=== PATIENT | male | born 1975 | race Hispanic/Latino ===

== ENCOUNTER 2023-12-08 19:17 | Emergency (ER) | payer SELFPAY ==
[~2023-12-08] VITALS: Ht 177.8 cm; Wt 86.2 kg
[2023-12-08] MEDS ORDERED: AMOX1TAB16 PO (19:43)
[2023-12-08] MEDS ORDERED: CIPR7.5D7 OT (19:43)
[2023-12-08] MEDS: CIPROFLOXACIN HCL 0.2%/HYDROCORT 1% 10 ML OTIC SUSP OTIC ONE (21:03)
[2023-12-08] MEDS: cefTRIAXone 1G VIAL IM ONE (21:03)
[2023-12-08] MEDS: ketOROlac 30MG VIAL (30MG/ML) IM ONE (21:03)
[2023-12-08 21:35] VITALS: BP 126/79; PULSE 68; RESP 16; TEMP 98; O2SAT 98
== END 2023-12-08 21:38 | disposition home or self-care (01) ==
LOC: EDH 19:17
DX: H60.91 Unspecified otitis externa, right ear (principal); Z79.899 Other long term (current) drug therapy; Z98.890 Other specified postprocedural states
CPT/HCPCS: 99284; 96372 ×2; J0696; J1885